=== PATIENT | male | born 1960 | race Hispanic/Latino ===

== ENCOUNTER 2019-04-16 16:33 | Emergency (ER) | payer SELFPAY ==
[~2019-04-16] VITALS: Ht 170.2 cm; Wt 81.6 kg
[2019-04-16] MEDS ORDERED: ONDANSETRON HCL INJ 2MG/ML 2ML 2 MG/ML VIAL IV ONE (16:49)
[2019-04-16] MEDS ORDERED: ONDANSETRON HCL INJ 2MG/ML 2ML 2 MG/ML VIAL ONE (16:59)
[2019-04-16] MEDS ORDERED: SODIUM CHLORIDE 0.9% 1000ML 1,000 ML ONE (16:59)
--- NOTE | 2019-04-16 16:59 | NUR ---
MORPHINE HELD, PT DROVE SELF TO ER AND INFORMED WILL NEED SECOND PERSON HERE TO BE ABLE TO DRIVE HIM HOME BEFORE MED CAN BE GIVEN. PT STATES UNDERSTANDING
[2019-04-16] MEDS ORDERED: SODIUM CHLORIDE 0.9% 1000ML 1,000 ML IV ONE (17:00)
[2019-04-16] MEDS ORDERED: MORPHINE SULFATE INJ 4 MG/ML INJ 1ML IV ONE (17:00)
[2019-04-16] MEDS ORDERED: SODIUM CHLORIDE 0.9% 50ML 50 ML ONE (17:23)
[2019-04-16] MEDS ORDERED: IOPAMIDOL 370 MG/ML 200 ML INFUS..BTL INJ ONE (17:24)
--- NOTE | 2019-04-16 18:28 | Diagnostic Imaging Report ---
EXAMINATION: CT of the abdomen and pelvis with contrast. TECHNIQUE: Spiral CT images of the abdomen and pelvis were performed from the lung bases to the lesser trochanters after the intravenous administration of 100 cc of Isovue 370 and the oral administration of water. Coronal and sagittal reformatted images were obtained. COMPARISON: None. CLINICAL HISTORY:Abdominal pain for 2 hours DISCUSSION: ABDOMEN/PELVIS: LOWER THORAX:Lung bases are grossly clear. Atherosclerotic calcification of the coronary arteries. HEPATOBILIARY: No focal hepatic lesions. No intra or extrahepatic biliary ductal dilation. GALLBLADDER: No radio-opaque stones or sludge. No wall thickening. SPLEEN: 1.7 cm splenule. No splenomegaly. PANCREAS: No focal masses or ductal dilatation. ADRENALS: No adrenal nodules. KIDNEYS/URETERS: No hydronephrosis, stones, or solid mass lesions. PELVIC ORGANS/BLADDER: Bladder is unremarkable. Prostate is unremarkable. PERITONEUM/RETROPERITONEUM: No free air or fluid. LYMPH NODES: No intra-abdominal, retroperitoneal, pelvic or inguinal lymphadenopathy. VESSELS: The celiac trunk,superior and inferior mesenteric and bilateral renal arteries are patent The portal, superior mesenteric and splenic veins are patent. Mild atherosclerotic calcification of the distal abdominal aorta. GI TRACT: The appendix is dilated, measuring 1.4 cm in diameter and shows thickened enhancing wall and mild to moderate surrounding fat stranding. No foci of extraluminal air or well-defined enhancing fluid collections. Mild prominence of an anteriorly located loop of mid ileum which is borderline dilated measuring 2.9 cm in caliber, however, shows no wall thickening or surrounding inflammatory changes. The rest of the bowel shows normal caliber. No evidence of obstruction. Scattered diverticula in the distal descending and sigmoid colon, without diverticulitis. BONES AND SOFT TISSUE: No aggressive lytic lesions. Degenerative changes in the lower lumbosacral spine. Small fat-containing umbilical hernia. IMPRESSION: 1. Findings consistent with acute appendicitis, in the appropriate clinical setting. No evidence of perforation or adjacent abscess formation. 2. An anteriorly located loop of mid ileum is borderline dilated, however, rest of the bowel shows no dilation or obstruction. This may represent a focal ileus. 3. Findings discussed with Dr. Bone April 16, 2019 at 1830 hours Signed by: Dr. Ty Galdamez M.D. on 04/16/2019 6:25 PM
[2019-04-16] MEDS ORDERED: PIPER-TAZ 3.375 GM 50 ML IV ONE (18:30)
--- NOTE | 2019-04-16 19:03 | NUR ---
spoke with mUu Ryder # [id number]. pt given extensive info on signing out AMA through [employer]. Pt stated he wanted to get a second oppinion. pt signed out AMA. copies of labs and CT given to patient. Addendum: 04/16/19 at 1908 by PARRISH pt's IV dc'd by Mariama, instructions given to patient by Mariama HAGEN through [employer] Umu Ryder # [id number].
== END 2019-04-16 19:09 | disposition left against medical advice (07) ==
LOC: FSED 16:33
DX: R10.13 Epigastric pain (principal); R10.33 Periumbilical pain; R11.0 Nausea; K35.80 Unspecified acute appendicitis
CPT/HCPCS: 74177; 80053; 80076; 81003; 84484; 85025; 99283; J2270; J2405; J7030; Q9967

== ENCOUNTER 2019-04-21 22:45 | Emergency (ER) | payer SELFPAY ==
[~2019-04-21] VITALS: Ht 170.2 cm; Wt 81.6 kg
--- OUTSIDE RECORDS SUMMARY | 2019-04-21 22:50 | XMS REPORT ---
Author Author [facility] Address Unknown Phone Unavailable Care Team Providers Care Shed Hand Name Role Phone Maribel BONE Unavailable Unavailable Problems This patient has no known problems. Allergies, Adverse Reactions, Alerts This patient has no known allergies or adverse reactions. Medications This patient has no known medications. Results Test Description Test Time Test Comments Text Results Atomic Results Result Comments CT ABD/PEL WITH CONTRAST-HOPD 2019-04-16 18:14:00 [place] [address] Patient Name: ARMANDO HUFF MR #: [id number] : 1960 Age/Sex: 59/M Req #: [id number] Adm Physician: Ordered by: ONOFRE BONE MD Report #: [id number] Location: [facility] Room/Bed: Procedure: [id number] HOPD/CT ABD/PEL WITH CONTRAST-HOPD Exam Date: 04/16/19 Exam Time: 1740 REPORT STATUS: Signed EXAMINATION: CT of the abdomen and pelvis with contrast. TECHNIQUE: Spiral CT images of the abdomen and pelvis were performed from the lung bases to the lesser trochanters after the intravenous administration of 100 cc of Isovue 370 and the oral administration of water. Coronal and sagittal reformatted images were obtained. COMPARISON: None. CLINICAL HISTORY:Abdominal pain for 2 hours DISCUSSION: ABDOMEN/PELVIS: LOWER THORAX:Lung bases are grossly clear. Atherosclerotic calcification of the coronary arteries. HEPATOBILIARY: No focal hepatic lesions. No intra or extrahepatic biliary ductal dilation. GALLBLADDER: No radio-opaque stones or sludge. No wall thickening. SPLEEN: 1.7 cm splenule. No splenomegaly. PANCREAS: No focal masses or ductal dilatation. ADRENALS: No adrenal nodules. KIDNEYS/URETERS: No hydronephrosis, stones, or solid mass lesions. PELVIC ORGANS/BLADDER: Bladder is unremarkable. Prostate is unremarkable. PERITONEUM/RETROPERITONEUM: No free air or fluid. LYMPH NODES: No intra-abdominal, retroperitoneal, pelvic or inguinal lymphadenopathy. VESSELS: The celiac trunk,superior and inferior mesenteric and bilateral renal arteries are patent The portal, superior mesenteric and splenic veins are patent. Mild atherosclerotic calcification of the distal abdominal aorta. GI TRACT: The appendix is dilated, measuring 1.4 cm in diameter and shows thickened enhancing wall and mild to moderate surrounding fat stranding. No foci of extraluminal air or well-defined enhancing fluid collections. Mild prominence of an anteriorly located loop of mid ileum which is borderline dilated measuring 2.9 cm in caliber, however, shows no wall thickening or surrounding inflammatory changes. The rest of the bowel shows normal caliber. No evidence of obstruction. Scattered diverticula in the distal descending and sigmoid colon, without diverticulitis. BONES AND SOFT TISSUE: No aggressive lytic lesions. Degenerative changes in the lower lumbosacral spine. Small fat-containing umbilical hernia. IMPRESSION: 1. Findings consistent with acute appendicitis, in the appropriate clinical setting. No evidence of perforation or adjacent abscess formation. 2. An anteriorly located loop of mid ileum is borderline dilated, however, rest of the bowel shows no dilation or obstructio n. This may represent a focal ileus. 3. Findings discussed with Dr. Bone April 16, 2019 at 1830 hours Signed by: Dr. Ricardo Galdamez M.D. on 04/16/2019 6:25 PM Dictated By: RICARDO GALDAMEZ MD 24 Transcribed By: JERARDO on 04/16/191824 COPY TO: ONOFRE BONE MD
--- NOTE | 2019-04-22 00:47 | NUR ---
ER IN ROOM WITH [employer] # [id number] BRYAN AND RN; PT INFORMED CT SHOWS WORSENING ACUTE APPENDICITIS; PT ASKED TO KNOW IF HE ABSOLUTELY HAD TO HAVE SURGERY AND PT WAS INFORMED THAT IS THE ONLY WAY TO TREAT APPENDICITIS; PT STATES HE WOULD RATHER TRAVEL AND THEN HAVE HIS APPENDECTOMY; ER HAD A LENGTHY CONVERSATION INFORMING THE PT OF THE RISKS OF LEAVING AGAINST MEDICAL ADVICE AND LEAVING THE HOSPITAL. PT STATES HE UNDERSTANDS BUT WOULD STILL RATHER LEAVE. PT IS AAOX4.
--- NOTE | 2019-04-22 00:48 | Diagnostic Imaging Report ---
EXAM: CT Abdomen and Pelvis WITHOUT contrast INDICATION: Acute appendicitis diagnosed on CT examination dated 04/16/19. COMPARISON: 04/16/2019. TECHNIQUE: Abdomen and pelvis were scanned utilizing a multidetector helical scanner from the lung base to the pubic symphysis without administration of IV contrast. Absence of intravenous contrast decreases sensitivity for detection of focal lesions and vascular pathology. Coronal and sagittal reformations were obtained. Routine protocol was performed. IV CONTRAST: None. ORAL CONTRAST: Water RADIATION DOSE: Total DLP: 408.03 mGy*cm Estimated effective dose: (DLP x 0.015 x size factor) mSv COMPLICATIONS: None FINDINGS: LINES and TUBES: None. LOWER THORAX: There is bibasilar atelectasis.. 5 mm trying wedge-shaped density in the right lung base laterally on image 12 of series 2 is unchanged. HEPATOBILIARY: No focal hepatic lesions. No biliary ductal dilation. GALLBLADDER: No radio-opaque stones or sludge. No wall thickening. SPLEEN: No splenomegaly. PANCREAS: No focal masses or ductal dilatation. ADRENALS: No adrenal nodules KIDNEYS/URETERS: No hydronephrosis. No cystic or solid mass lesions. No stones. GI TRACT: There is fecalization of contents of multiple ileal loops with borderline bowel distention, which may reflect ileus secondary to inflammatory process in the abdomen. Redemonstration of acute appendicitis with increased in surrounding periappendiceal inflammatory changes and small volume free fluid without loculated fluid collections. A few scattered sigmoid diverticula without CT evidence of acute diverticulitis. PELVIC ORGANS/BLADDER: The prostate is moderately enlarged measuring 5.2 cm in transverse dimension. LYMPH NODES: No lymphadenopathy. VESSELS: There is mild atherosclerotic disease in the aorta and major arterial branches. PERITONEUM / RETROPERITONEUM: No free air or fluid. BONES: There are degenerative changes in the lumbar spine. SOFT TISSUES: Unremarkable. IMPRESSION: 1. Redemonstration of acute appendicitis with increased in surrounding periappendiceal inflammatory changes and small volume free fluid without loculated fluid collections. 2. Small bowel ileus likely to due to right lower quadrant inflammatory changes. Signed by: Dr. Zoe Shearer M.D. on 04/22/2019 12:44 AM
== END 2019-04-22 00:50 | disposition left against medical advice (07) ==
LOC: FSED 22:45
DX: R10.84 Generalized abdominal pain (principal); K37 Unspecified appendicitis
CPT/HCPCS: 74176; 99283